=== PATIENT | male | born 1990 ===

== ENCOUNTER 2017-04-24 13:00 | Outpatient (CLI) | payer BC ==
[~2017-04-24] VITALS: Ht 177.8 cm; Wt 90.7 kg
[2017-04-24 13:24] LABS: BASOPHILS % (AUTO) 1.3 % (0.0-2.0); EOSINOPHILS % (AUTO) 3.7 % (0.0-3.0); LYMPHOCYTES % (AUTO) 31.9 % (20.0-45.0); MEAN CORPUSCULAR HEMOGLOBIN 28.6 PG (27.0-31.0); MEAN CORPUSCULAR HGB CONC 32.1 G/DL (32.0-36.0); MEAN CORPUSCULAR VOLUME 89 FL (80-99); MONOCYTES % (AUTO) 6.4 % (1.0-10.0); NEUTROPHILS % (AUTO) 56.7 % (45.0-75.0); PLATELET COUNT 186 K/UL (150-450); RED BLOOD COUNT 5.43 M/UL (4.70-6.10); RED CELL DISTRIBUTION WIDTH 11.1 % (11.6-14.8); WHITE BLOOD COUNT 5.7 K/UL (4.8-10.8)
[2017-04-24 13:34] LABS: PROTHROMBIN TIME 10.7 SEC (9.30-11.50)
[2017-04-24 13:46] LABS: APPEARANCE,URINE CLEAR; KETONES,URINE NEGATIVE (NEGATIVE); LEUKOCYTE ESTERASE ,URINE 1+ (NEGATIVE); NITRITE,URINE NEGATIVE (NEGATIVE); PH,URINE 8 (4.5-8.0); PROTEIN,URINE NEGATIVE (NEGATIVE); UROBILINOGEN,URINE NORMAL MG/DL (0.0-1.0)
[2017-04-24 13:53] LABS: HEMOGLOBIN A1C 5.4 % (4.3-6.0)
[2017-04-24 13:59] LABS: BACTERIA,URINE FEW /HPF; RBC,URINE 0-2 /HPF (0 - 0); SQUAMOUS EPITHELIAL CELL,UR OCCASIONAL /LPF (NONE/OCC); WBC,URINE 0-2 /HPF (0 - 0)
[2017-04-24 14:06] LABS: ALANINE AMINOTRANSFERASE 24 U/L (12-78); ALBUMIN/GLOBULIN RATIO 1.2 (1.0-2.7); ANION GAP 7 mmol/L (5-15); ASPARTATE AMINO TRANSFERASE 23 U/L (15-37); CALCIUM 9.1 MG/DL (8.5-10.1); CARBON DIOXIDE 28 MMOL/L (21-32); CHLORIDE 103 MMOL/L (98-107); CHOLESTEROL 164 MG/DL (< 200); CHOLESTEROL/HDL RATIO 3.6 (3.3-4.4); CREATININE 1.4 MG/DL (0.55-1.30); GLOMERULAR FILTRATION RATE > 60 mL/min (>60); POTASSIUM 4.2 MMOL/L (3.5-5.1); SODIUM 138 MMOL/L (136-145); THYROID STIMULATING HORMONE 2.339 uiU/mL (0.358-3.740); TOTAL PROTEIN 7.6 G/DL (6.4-8.2); URIC ACID 5.7 MG/DL (2.6-7.2)
--- NOTE | 2017-04-25 05:02 | Diagnostic Imaging Report ---
Indication: Technique: 2 views of the chest Comparison: none. Findings: Lungs and pleural spaces are clear. Heart size is normal. Bones are unremarkable.. Impression: No acute process
[2017-04-26] MEDS ORDERED: celeBREX 200mg Cap **SURGERY PATIENTS ONLY ORAL ONE (06:00)
[2017-04-26] MEDS ORDERED: oxyCONTIN 20mg tab ORAL ONE (06:00)
[2017-04-26] MEDS ORDERED: ceFAZolin 1gm in D5W 55ml IVP ONE (06:00)
--- NOTE | 2017-04-26 07:34 | Pre-Procedure Note/Attestation ---
Pre-Procedure Note/Attestation Complete Prior to Procedure Planned Procedure: left Procedure Narrative: shoulder arthroscopy, labral stablization Indications for Procedure Pre-Operative Diagnosis: left shoulder labral tear Attestation I attest that I discussed the nature of the procedure; its benefits; risks and complications; and alternatives (and the risks and benefits of such alternatives ), prior to the procedure, with the patient (or the patient's legal union contract representative). I attest that, if there was a reasonable possibility of needing a blood transfusion, the patient (or the patient's legal union contract representative) was given the [facility] standardized written summary, pursuant to the Lamberto Bowlus Blood Safety Act ([place] Health and Safety Code # 1645, as amended). I attest that I re-evaluated the patient just prior to the surgery and that there has been no change in the patient's H&P, except as documented below: MARLENA MCGILL Apr 26, 2017 07:34
--- NOTE | 2017-04-26 07:35 | Operative Note - PDOC ---
Operative Note Operative Note Pre-op Diagnosis: left shoulder labral tear Procedure: left shoulder arthroscopic labral repair Post-op Diagnosis: same as pre-op plus Operative Findings: consistent w/pre-op dx studies Anesthesia: MAC Specimen: none Complications: none Condition: stable Estimated Blood Loss: none Implant(s) used?: No MARLENA MCGILL Apr 26, 2017 07:35
[2017-04-26 12:07] VITALS: BP 103/59
[2017-04-26] MEDS ORDERED: CITALOPRAM HBR40 M1 ORAL (12:09)
[2017-04-26] MEDS ORDERED: XANAX1 MG ORAL (12:10)
[2017-04-29 13:09] LABS: VITAMIN D 25-OH TOTAL 28 ng/mL (.)
== END 2017-04-24 15:00 | disposition home or self-care (01) ==
LOC: RAD 13:00 → SUR 04-26 09:51 → EDSTATUS 05-09 12:45
DX: Z01.812 Encounter for preprocedural laboratory examination (principal); Z01.810 Encounter for preprocedural cardiovascular examination; Z01.811 Encounter for preprocedural respiratory examination; Z11.4 Encounter for screening for human immunodeficiency virus [HIV]; S43.402A Unspecified sprain of left shoulder joint, initial encounter
CPT/HCPCS: 36415; 71020; 80053; 80061; 81003; 82306; 82607; 82746; 83036; 84439; 84443; 84550; 85025; 85610; 85730; 86703; 87086